=== PATIENT | female | born 1945 | race African-American/Black ===

== ENCOUNTER 2019-07-06 13:20 | Inpatient (IN) | payer OTHER ==
[~2019-07-06] VITALS: Ht 157.5 cm; Wt 89.8 kg
[2019-07-06] MEDS ORDERED: ATROPINE SULFATE 1MG/10ML SYR IV ONE (15:15)
[2019-07-06 15:31] LABS: BASOPHILS % 0.6 % (0.0-2.0); EOSINOPHILS % 1.5 % (0.0-5.0); HEMATOCRIT. 35.5 % (36.0-48.0); HEMOGLOBIN. 12.1 g/dL (12.0-16.0); LYMPHOCYTES % 41.1 % (20.0-50.0); MEAN CORPUSCULAR HEMOGLOBIN 29.8 pg (28.0-32.0); MEAN CORPUSCULAR VOLUME 87.4 fL (81.0-99.0); MEAN PLATELET VOLUME 10.2 fl (7.4-10.4); MONOCYTES % 8.6 % (2.0-8.0); NEUTROPHILS % 48.2 % (40.0-76.0); PLATELET 375 x1000/uL (130-400); RED BLOOD CELL COUNT 4.06 mill/uL (4.2-5.4); RED CELL DISTRIBUTION WIDTH 15.4 % (11.6-14.6)
[2019-07-06 15:39] LABS: CHLORIDE 107 mEq/L (98-107)
[2019-07-06] MEDS ORDERED: POTASSIUM CHLORIDE 20MEQ TABLET SR PO SCH (18:00)
[2019-07-06] MEDS ORDERED: ONDANSETRON HCL 4MG/2ML INJ IV PRN (18:00)
[2019-07-06] MEDS ORDERED: ACETAMINOPHEN 325MG TABLET PO PRN (18:00)
[2019-07-07] VITALS (52 sets, daily range): BP systolic 92–174; BP diastolic 31–71
[2019-07-07] MEDS: HYDRALAZINE HCL 50MG TABLET PO SCH ×4 (01:40→21:34)
[2019-07-07] MEDS ORDERED: SIMV-43 PO (02:07)
[2019-07-07] MEDS ORDERED: ASPI325T85 MT (02:07)
[2019-07-07] MEDS ORDERED: VALS1TAB80 MT (02:07)
[2019-07-07] MEDS ORDERED: MULT-1146 PO (02:07)
[2019-07-07] MEDS ORDERED: NEBI20TA2 PO (02:07)
[2019-07-07 04:56] LABS: BASOPHILS % 1.3 % (0.0-2.0); EOSINOPHILS % 2.4 % (0.0-5.0); HEMATOCRIT. 37.2 % (36.0-48.0); HEMOGLOBIN. 12.4 g/dL (12.0-16.0); LYMPHOCYTES % 38.4 % (20.0-50.0); MEAN CORPUSCULAR HEMOGLOBIN 29.3 pg (28.0-32.0); MEAN CORPUSCULAR VOLUME 87.8 fL (81.0-99.0); MEAN PLATELET VOLUME 9.3 fl (7.4-10.4); MONOCYTES % 11.1 % (2.0-8.0); NEUTROPHILS % 46.8 % (40.0-76.0); PLATELET 308 x1000/uL (130-400); RED BLOOD CELL COUNT 4.23 mill/uL (4.2-5.4); RED CELL DISTRIBUTION WIDTH 15.3 % (11.6-14.6)
[2019-07-07 05:17] LABS: CHLORIDE 112 mEq/L (98-107)
[2019-07-07 05:26] LABS: PHOSPHORUS 3.6 mg/dL (2.5-4.9)
[2019-07-07] MEDS ORDERED: NON FORMULARY PATIENT HOME MED PO SCH (06:00)
[2019-07-07] MEDS: SODIUM CHLORIDE 0.9% 1,000 ML IV SCH ×2 (08:50→22:01)
[2019-07-07] MEDS ORDERED: ASPIRIN 81MG TABLET PO SCH (09:00)
[2019-07-07] MEDS ORDERED: IOHEXOL-350 100 ML BOTTLE ONE (09:19)
[2019-07-07 09:53] LABS: T4 FREE 1.1 ng/dL (0.76-1.46)
[2019-07-07] MEDS: ASPIRIN 325MG EC TABLET PO SCH (10:09)
[2019-07-07] MEDS: AMLODIPINE 10MG TABLET PO SCH (10:09)
[2019-07-07] MEDS: LOSARTAN POTASSIUM 100 MG TABLET PO SCH (10:09)
[2019-07-07] MEDS: ENOXAPARIN 40MG/0.4ML SYR SUBCUT SCH (14:30)
[2019-07-07 16:04] LABS: CREATINE KINASE 169 IU/L (26-192)
[2019-07-07 16:05] LABS: CREATINE KINASE MB FRACTION < 1.0 ng/mL (0.5-3.6)
[2019-07-07] MEDS ORDERED: ATORVASTATIN CALCIUM 20MG TABLET PO SCH (21:00)
[2019-07-07 23:13] LABS: CREATINE KINASE 118 IU/L (26-192)
[2019-07-07 23:14] LABS: CREATINE KINASE MB FRACTION < 1.0 ng/mL (0.5-3.6)
[2019-07-08] VITALS (21 sets, daily range): BP systolic 115–185; BP diastolic 41–82
[2019-07-08] MEDS: HYDRALAZINE HCL 50MG TABLET PO SCH (05:02)
[2019-07-08 06:24] LABS: BASOPHILS % 1.2 % (0.0-2.0); EOSINOPHILS % 5.7 % (0.0-5.0); HEMATOCRIT. 32.9 % (36.0-48.0); LYMPHOCYTES % 37.2 % (20.0-50.0); MEAN CORPUSCULAR HEMOGLOBIN 29.1 pg (28.0-32.0); MEAN CORPUSCULAR VOLUME 87.1 fL (81.0-99.0); MEAN PLATELET VOLUME 9.3 fl (7.4-10.4); MONOCYTES % 10.4 % (2.0-8.0); NEUTROPHILS % 45.5 % (40.0-76.0); PLATELET 300 x1000/uL (130-400); RED BLOOD CELL COUNT 3.78 mill/uL (4.2-5.4); RED CELL DISTRIBUTION WIDTH 14.9 % (11.6-14.6)
[2019-07-08 06:53] LABS: CHLORIDE 111 mEq/L (98-107)
[2019-07-08 07:05] LABS: CREATINE KINASE 108 IU/L (26-192)
[2019-07-08 07:10] LABS: CREATINE KINASE MB FRACTION < 1.0 ng/mL (0.5-3.6)
[2019-07-08] MEDS: ENOXAPARIN 40MG/0.4ML SYR SUBCUT SCH (09:04)
[2019-07-08] MEDS: LOSARTAN POTASSIUM 100 MG TABLET PO SCH (09:04)
[2019-07-08] MEDS: ASPIRIN 325MG EC TABLET PO SCH (09:04)
[2019-07-08] MEDS: AMLODIPINE 10MG TABLET PO SCH (09:04)
[2019-07-08] MEDS: SODIUM CHLORIDE 0.9% 1,000 ML IV SCH (11:26)
[2019-07-08] MEDS ORDERED: AMLO5TAB88 MT (11:49)
[2019-07-08] MEDS ORDERED: HYDRALAZINE HCL 100MG TABLET PO SCH (14:00)
== END 2019-07-08 15:15 | disposition home or self-care (01) | DRG 73 ==
LOC: ER 13:20 → CVICU 15:26 → EDBEDREQTM 15:32 → EDBEDREQ 15:32 → ENRESERV 23:09
PROVIDERS: ADMIT Internal Medicine; ATTEND Internal Medicine
DX: G90.8 Other disorders of autonomic nervous system (principal); N17.0 Acute kidney failure with tubular necrosis; E78.5 Hyperlipidemia, unspecified; E87.6 Hypokalemia; I10 Essential (primary) hypertension; E66.9 Obesity, unspecified; I65.21 Occlusion and stenosis of right carotid artery; I25.10 Atherosclerotic heart disease of native coronary artery without angina pectoris; I25.2 Old myocardial infarction; Z95.1 Presence of aortocoronary bypass graft; Z68.36 Body mass index [BMI] 36.0-36.9, adult; R00.1 Bradycardia, unspecified
CPT/HCPCS: 36415; 71045; 71275; 80048; 80053; 80061; 82550; 82553; 83036; 83735; 83880; 84100; 84439; 84443; 84484; 85025; 85379; 93005; 93306; 93880; 93970; 99291; J1650; J7030; Q9967